=== PATIENT | female | born 1950 | race Caucasian/White ===

== ENCOUNTER → 2016-12-21 | Outpatient (CLI) | payer MEDICARE, OTHER | LOC: HEART CORB 09:07 | DX: R00.2 Palpitations (principal); I48.0 Paroxysmal atrial fibrillation ==

== ENCOUNTER → 2022-04-22 | Outpatient (CLI) | payer OTHER ==
[2022-04-22 10:51] LABS: HEMOGLOBIN 12.9 gm/dl (12.3-15.3); RED BLOOD COUNT 4.36 M/UL (4.00-5.10); WHITE BLOOD COUNT 5.6 K/UL (4.5-11.0)
[2022-04-22 11:17] LABS: BUN/CREATININE RATIO 12 (0-10)
== END ==
LOC: HEART 5 09:15 → LAB 09:15 → HEART 5 10:00
PROVIDERS: Internal Medicine Cardiovascular Disease
DX: R06.02 Shortness of breath (principal); I49.5 Sick sinus syndrome; I10 Essential (primary) hypertension; Z45.010 Encounter for checking and testing of cardiac pacemaker pulse generator [battery]; I08.3 Combined rheumatic disorders of mitral, aortic and tricuspid valves
CPT/HCPCS: 36415; 71046; 80048; 85025; 93306

== ENCOUNTER 2022-05-05 11:34 | Outpatient (CLI) | payer OTHER ==
[~2022-05-05] VITALS: Ht 165.1 cm; Wt 98.0 kg
[2022-05-05] MEDS ORDERED: ARIMIDEX1 MG PO (12:11)
[2022-05-05] MEDS ORDERED: CALCIUM500 M1 PO (12:12)
[2022-05-05] MEDS ORDERED: ISMO TAB 20 MG20 MG PO (12:12)
[2022-05-05] MEDS ORDERED: ELIQUIS5 MG PO (12:12)
[2022-05-05] MEDS ORDERED: ZESTRIL20 MG PO (12:13)
[2022-05-05] MEDS ORDERED: NITROSTAT0.4 MG SL (12:13)
[2022-05-05] MEDS ORDERED: PAROXETINE HCL20 MG PO (12:14)
[2022-05-05] MEDS ORDERED: ZOCOR20 MG PO (12:14)
[2022-05-05] MEDS ORDERED: DITROPAN XL5 MG PO (12:14)
[2022-05-05] MEDS ORDERED: SINGULAIR10 MG PO (12:15)
[2022-05-05] MEDS ORDERED: SOTALOL120 MG PO (12:15)
[2022-05-05] MEDS ORDERED: STIOLTO RESPIMAT4 GM INH (12:16)
[2022-05-05] MEDS ORDERED: VERAPAMIL ER240 MG PO (12:17)
[2022-05-05] MEDS ORDERED: PROAIR HFA8.5 GM INH (12:17)
[2022-05-05] MEDS ORDERED: VITAMIN D350 MCG PO (12:18)
[2022-05-05] MEDS ORDERED: CLEOCIN HCL300 MG PO (15:40)
[2022-05-05] MEDS ORDERED: CEPHALEXIN500 M1 PO (15:40)
[2022-05-05] MEDS ORDERED: HYDROCODON-ACE1 EAC4 PO (15:40)
[2022-05-05] MEDS ORDERED: FUROSEMIDE20 MG PO (19:07)
[2022-05-05] MEDS ORDERED: OMEPRAZOLE40 MG PO (19:08)
== END 2022-05-06 13:22 | disposition home or self-care (01) ==
LOC: CATH 11:34 → PROG CARE 11:34 → CATH 13:00 → PROG CARE 16:08 → CATH 16:08
DX: Z45.010 Encounter for checking and testing of cardiac pacemaker pulse generator [battery] (principal); I11.0 Hypertensive heart disease with heart failure; I50.22 Chronic systolic (congestive) heart failure; I25.10 Atherosclerotic heart disease of native coronary artery without angina pectoris; I49.5 Sick sinus syndrome; I48.0 Paroxysmal atrial fibrillation; I42.0 Dilated cardiomyopathy; I47.2 Ventricular tachycardia; I25.5 Ischemic cardiomyopathy; C50.919 Malignant neoplasm of unspecified site of unspecified female breast; I08.8 Other rheumatic multiple valve diseases; K21.9 Gastro-esophageal reflux disease without esophagitis; E78.5 Hyperlipidemia, unspecified; Z79.83 Long term (current) use of bisphosphonates; Z79.811 Long term (current) use of aromatase inhibitors; Z79.82 Long term (current) use of aspirin; Z79.01 Long term (current) use of anticoagulants; Z79.84 Long term (current) use of oral hypoglycemic drugs; Z79.02 Long term (current) use of antithrombotics/antiplatelets; Z98.49 Cataract extraction status, unspecified eye; Z98.51 Tubal ligation status; Z82.49 Family history of ischemic heart disease and other diseases of the circulatory system; Z80.8 Family history of malignant neoplasm of other organs or systems; Z87.891 Personal history of nicotine dependence
CPT/HCPCS: 33225; 71045; 93005; 93641; 94640; 94664; 94760; 99152; 99153; C1769; C1777; C1882; C1900; J1644; J1940; J2250; J3010; J3370; J7040; J7050; J7070; Q9965